=== PATIENT | female | born 1985 | race Caucasian/White ===

== ENCOUNTER 2016-05-22 15:29 | Emergency (ER) | payer OTHER ==
[~2016-05-22] VITALS: Ht 160 cm; Wt 124.7 kg
[~2016-05-22 15:29] MED LIST: IBUPROFEN200 M2 PO; MERIBIN5 MG PO; MIRENA1 EACH; SUBOXONE 8 MG-1 EACH SL; SUBOXONE 8 MG-21 TAB SL; TYLENOL EXTRA500 M2 PO
[2016-05-22 17:11] LABS: ABSOLUTE BASOPHIL COUNT 0 /CUMM (0.0-0.2); ABSOLUTE EOSINOPHIL COUNT 0.1 /CUMM (0.0-0.7); ABSOLUTE GRANULOCYTE CT 8.6 /CUMM (1.4-6.5); ABSOLUTE LYMPH COUNT 1.7 /CUMM (1.2-3.4); ABSOLUTE MONOCYTE COUNT 0.5 /CUMM (0.10-0.60); BASOPHIL % 0.3 % (0.0-2.0); EOSINOPHIL % 0.7 % (0-5); GRANULOCYTE % 78.7 % (42.2-75.2); HEMATOCRIT 40.3 % (37-47); MEAN CORPUSCULAR HGB 29.5 PG (27.0-31.0); MEAN CORPUSCULAR HGB CONC 33.2 G/DL (33.0-37.0); MEAN CORPUSCULAR VOLUME 88.9 FL (81.0-99.0); MEAN PLATELET VOLUME 7.8 FL (7.4-10.4); PLATELET COUNT 195 /CUMM (130-400); RBC DISTRIBUTION WIDTH 15.5 % (11.5-14.5); RED BLOOD CELL CT 4.53 /CUMM (4.20-5.40); WHITE BLOOD CELL COUNT 10.9 /CUMM (4.8-10.8)
--- NOTE | 2016-05-22 19:02 | ED CARDIAC/CP/PALPITATIONS ---
History of Present Illness General Chief Complaint: Chest Pain Stated Complaint: CHEST PAIN, TIGHTNESS SINCE LAST AM Source: patient Exam Limitations: no limitations Vital Signs & Intake/Output Vital Signs & Intake/Output Vital Signs Date Time Temp Pulse Resp B/P Pulse O2 O2 Flow FiO2 Ox Delivery Rate 05/225 98.0 72 18 134/66 99 Room Air 05/22 1837 98.6 83 18 149/68 98 Room Air 05/22 1646 96.4 79 16 122/68 96 Room Air ED Intake and Output 05/23 0000 05/22 1200 Intake Total 0 Output Total Balance 0 Intake, Oral 0 Patient 275 lb Weight Allergies Coded Allergies: cefaclor (From CECLOR) (RASH 02/01/16) tramadol (RASH 02/01/16) Reconcile Medications Acetaminophen (Tylenol Extra Strength) 500 MG TABLET 2 TAB PO Q8H PRN PAIN ( Reported) Buprenorphine HCl/Naloxone HCl (Suboxone 8 MG-2 MG Sl Film) 1 EACH FILM 1 STR SL TID PAIN (Reported) Ibuprofen 200 MG TABLET 600-800 MG PO Q4-6H PAIN (Reported) Levonorgestrel (Mirena) 1 EACH IUD CONTROL (Reported) Triage Note: PT STATES SHE HAD TIGHTNESS IN HER CHEST SINCE LAST EVENING. PT STATES 1/2 HOUR LATER SHE HAD NUMBNESS AND TINGLING IN THE TIPS OF HER FINGERS. PT STATES THE LAST EPISODE OF THIS WAS ABOUT 1400 TODAY. Triage Nurses Notes Reviewed? yes Onset: Gradual Duration: gone now, intermittent Timing: recent history Location: substernal Radiation: no radiation Activities at Onset: none Prior Chest Pain/Card Workup: no prior chest pain, no prior cardiac workup : No Patient currently breastfeeds: No HPI: Patient is a 30-year-old female with an unremarkable past medical history presents emergency and that yesterday at approximately 11 PM while at rest patient had acute onset of substernal chest tightness and heaviness that lasted approximate 5 minutes with associated symptoms of right finger numbness and tingling. Patient patient states that the symptoms have been intermittent since in which last episodes was 2 hours prior to being evaluated. Patient currently is asymptomatic. Denies any fever, chills, headache arm pain jaw pain palpitations nausea vomiting diaphoresis hemoptysis leg swelling shortness of breath cough. Denies any history of DVT PE denies any oral contraceptive denies any recent travel recent surgery. Patient denies any illicit drug use specially denies any cocaine use Denies any significant family history of cardiac disease Denies any tobacco use and drinks alcohol on occasion (SUE VALENTINE) Past History Travel History Traveled to [place] past 21 day No Medical History Any Pertinent Medical History? none History of CDIFF: No Surgical History Surgical History: non-contributory Psychosocial History What is your primary language Latvian Tobacco Use: Never used ETOH Use: occasional use Illicit Drug Use: denies illicit drug use Family History Hx Contributory? No (SUE VALENTINE) Review of Systems Review of Systems Constitutional: Reports: no symptoms. EENTM: Reports: no symptoms. Respiratory: Reports: no symptoms. Cardiovascular: Reports: see HPI, chest pain. GI: Reports: no symptoms. Genitourinary: Reports: no symptoms. Musculoskeletal: Reports: no symptoms. Skin: Reports: no symptoms. Neurological/Psychological: Reports: see HPI, paresthesia. Hematologic/Endocrine: Reports: no symptoms. Immunologic/Allergic: Reports: no symptoms. All Other Systems: Reviewed and Negative (SUE VALENTINE) Physical Exam Physical Exam General Appearance: no apparent distress, alert, comfortable Cardiovascular: regular rate/rhythm Comments: Well-developed well-nourished person in no acute distress HEENT: Normal EENT exam, extraocular motion intact, no nystagmus. Pupils equally round and reactive to light and accommodation. Nose is atraumatic. External auditory canal and Tympanic membranes clear. Pharynx normal. No swelling or edema. Neck: Supple, no lymphadenopathy, normal range of motion without pain or tenderness Back: Nontender, no CVA tenderness. Cardiovascular: Regular rate and rhythms no murmurs rubs or gallops, normal JVP Respiratory: Mild substernal point tenderness noted on palpation. No respiratory distress.breath sounds clear to auscultation bilaterally Abdomen: Soft, nontender nondistended, no appreciable organomegaly. Normal bowel sounds. No ascites Extremity: No edema, no calf tenderness to palpation, normal and equal pulses. Neuro: Alert oriented x3, motor sensory normal, Skin: No appreciable rash on exposed skin, skin is warm and dry. Psych: Mood and affect is normal, memory and judgment is normal. Core Measures ACS in differential dx? Yes Severe Sepsis Present: No Septic Shock Present: No (SUE VALENTINE) Progress Differential Diagnosis: AMI, aortic dissection, atrial fibrillation, cholecystitis, CHF/pulm edema, costochondritis, hyperkalemia, hypovolemia, hyperthyroid, hyperventilation, intracranial hemorrhage, musculoskeletal pain, myocarditis, pancreatitis, pericarditis, pneumonia, pneumothorax, PSVT, pulmonary embolism, PUD/GERD, PVCs/PACs, respiratory failure, rib fracture, sepsis, unstable angina, V-fib/V-Tach, WPW syndrome Plan of Care: Orders Procedure Date/time Status Add-on Test (ER Only) 05/22 1846 Active HUMAN BETA HCG SCREEN 05/22 165 Complete TROPONIN LEVEL 05/22 165 Complete COMPREHENSIVE METABOLIC PANEL 05/22 165 Complete CBC WITHOUT DIFFERENTIAL 05/22 1649 Complete EKG 05/22 1530 Active Laboratory Tests 05/22/16 165: Anion Gap 12, Estimated GFR > 60, BUN/Creatinine Ratio 28.3 H, Glucose 97, Calcium 9.0, Total Bilirubin 0.6, AST 24, ALT 46, Alkaline Phosphatase 50, Troponin I < 0.01, Total Protein 6.9, Albumin 3.8, Globulin 3.1, Albumin/ Globulin Ratio 1.2, Total Beta HCG NEGATIVE, CBC w Diff NO MAN DIFF REQ, RBC 4.53, MCV 88.9, MCH 29.5, RDW 15.5 H, MPV 7.8, Gran % 78.7 H, Lymphocytes % 15.7 L, Monocytes % 4.6, Eosinophils % 0.7, Basophils % 0.3, Absolute Granulocytes 8.6 H, Absolute Lymphocytes 1.7, Absolute Monocytes 0.5, Absolute Eosinophils 0.1, Absolute Basophils 0, PUBS MCHC 33.2 Due to history of present illness exam findings that patient has a PERC 0 score which essentially rules out pulmonary embolism. Patient had a 20 hour onset of chest heaviness and tightness symptoms which has completely resolved in which patient had initial EKG to be normal sinus rhythm patient on school bus monitor noted to be normal sinus rhythm and patient had unremarkable laboratory blood work especially cardiac troponin markers. Patient was reevaluated on multiple occasions and had no exacerbation of any symptom. Patient was strongly advised to follow up with primary care doctor was given absorption and adsorption engineer for follow-up if symptoms still continue. Upon discharge patient looks well no apparent distress and will comply with discharge instructions and had no questions. Patient had reproducible chest pain upon anterior chest wall palpation and my suspicion of myocardial involvement is low however I stressed with patient if symptoms worsen to return to the emergency room and she will comply (SUE VALENTINE) Diagnostic Imaging: Viewed by Me: Radiology Read. CXR Impression: no acute abnormality, no infiltrates Initial ED EKG: sinus rhythm at 78 bpm Comments: PATIENT: LEONARD INMAN PRESENT AGE: 30 PATIENT ACCOUNT NO: [id number] : 87 LOCATION: [facility] ORDERING PHYSICIAN: SUE MARTINEZ SERVICE DATE: 05/22/16 EXAM TYPE: RAD - XRY-CHEST XRAY, PA AND LATERAL EXAMINATION: XR CHEST CLINICAL INFORMATION: Chest tightness COMPARISON: Chest x-rays most recent prior dated 04/25/2012 TECHNIQUE: PA and lateral views of the chest were obtained. FINDINGS: Cardiomediastinal silhouette is within normal limits. Lungs are clear. Bony thorax is intact. IMPRESSION: No acute pulmonary disease (USE VALENTINE) Departure Departure Disposition: HOME OR SELF CARE Condition: Stable Clinical Impression Primary Impression: Chest wall pain Referrals: ARLEN HENDRIX,LUCIO (PCP/Family) Additional Instructions: As discussed if symptoms worsen or IF YOU develop a concerning symptom return to emergency room. If no better in 2 days follow-up with primary care doctor and please give labs and EKG and chest x-ray copies to them for follow-up AND please establish a absorption and adsorption engineer DR. DYER in 2 days if symptoms still persist. Departure Forms: Customer Survey General Discharge Information (SUE VALENTINE) PA/ACCOUNTS EXECUTIVE Co-Sign Statement Statement: ED Attending supervision documentation- [] I saw and evaluated the patient. I have also reviewed all the pertinent lab results and diagnostic results. I agree with the findings and the plan of care as documented in the PA's/ACCOUNTS EXECUTIVE's documentation. [X] I have reviewed the ED Record and agree with the PA's/ACCOUNTS EXECUTIVE's documentation. [] Additions or exceptions (if any) to the PAs/ACCOUNTS EXECUTIVE's note and plan are summarized below: [] (PORTER HENDRIX,QUINTON Lamar) Critical Care Note Critical Care Note Critical Care Time: non-applicable (SUE VALENTINE)
--- NOTE | 2016-05-22 19:41 | RADIOLOGY REPORT ---
EXAMINATION: XR CHEST CLINICAL INFORMATION: Chest tightness COMPARISON: Chest x-rays most recent prior dated 04/25/2012 TECHNIQUE: PA and lateral views of the chest were obtained. FINDINGS: Cardiomediastinal silhouette is within normal limits. Lungs are clear. Bony thorax is intact. IMPRESSION: No acute pulmonary disease.
[2016-05-22 19:55] VITALS: BP 134/66
[2016-10-18] MEDS ORDERED: SUBOXONE 8 MG-1 EACH (19:13)
[2016-10-22] MEDS ORDERED: PERCOCET 5-3251 EACH PO (18:13)
[2016-10-22] MEDS ORDERED: CYCLOBENZAPRINE5 M2 PO (18:13)
== END 2016-05-22 19:56 ==
LOC: ERH 15:29
PROVIDERS: Emergency Medicine
DX: R07.89 Other chest pain (principal)
CPT/HCPCS: 93005; 93010

== ENCOUNTER 2016-10-19 11:12 | Emergency (ER) | payer OTHER ==
[~2016-10-19] VITALS: Ht 162.6 cm; Wt 113.9 kg
[~2016-10-19 11:12] MED LIST changes: +SUBOXONE 8 MG-1 EACH
--- NOTE | 2016-10-19 12:36 | ED GI/GU/ABDOMINAL COMPLAINT ---
History of Present Illness General Chief Complaint: Abdominal Pain/Flank Pain Stated Complaint: LOWER PELVIC AND BACK PAIN SEEN HERE YESTERDAY Source: patient Exam Limitations: no limitations Vital Signs & Intake/Output Vital Signs & Intake/Output Vital Signs Date Time Temp Pulse Resp B/P B/P Pulse O2 O2 Flow FiO2 Mean Ox Delivery Rate 10/19 1535 99.4 70 16 112/64 100 Room Air 10/19 1316 98.7 73 16 128/68 98 Room Air 10/19 1124 96.2 87 18 115/79 98 Room Air Allergies Coded Allergies: cefaclor (From CECLOR) (RASH 10/18/16) tramadol (RASH 10/18/16) Reconcile Medications Buprenorphine HCl/Naloxone HCl (Suboxone 8 MG-2 MG Sl Film) (Unknown Strength) FILM (Unknown Dose) UNKNOWN (Reported) Ciprofloxacin HCl (Cipro) 500 MG TABLET 1 TAB PO BID UTI Levonorgestrel (Mirena) 1 EACH IUD CONTROL (Reported) Oxycodone HCl/Acetaminophen (Percocet 5-325 MG Tablet) 5 MG-325 MG TABLET 1-2 TAB PO Q6P PRN PAIN Triage Note: C/O LOWER ABODMINAL PAIN X 2 WEEKS, SEEN HERE YESTERDAY. HAD UA AND US DONE (NEGATIVE). STATES PAIN IS WORSE TODAY RADIATING TO BACK WITH NAUSEA. Triage Nurses Notes Reviewed? yes ? n Is pt currently ? No Onset: Abrupt Duration: week(s): (2), constant, continues in ED Timing: recent history Quality/Severity: moderate, sharpness Location: right, lower pelvis Radiation: back Activities at Onset: none No Modifying Factors: none HPI: 22-year-old female comes into emergency room for further evaluation of right lower pelvic pain has been going on for the past 2 weeks continuously. Some associated vomiting today. Patient was seen by yesterday here in the emergency room. Patient had a pelvic exam done as well as an ultrasound done and sent home. No acute findings. Sexually active with one partner. Some increased frequency with urination. Denies any vaginal discharge. Denies any changes in bowel movement. Previous exploratory laparoscopy for possible endometriosis or polycystic ovary disease. Laparoscopy was negative. Patient has a history of cholecystectomy but denies any other surgeries other than those 2. Denies any other associated symptoms. (BRANDON MARTINEZ,TANVIR) Past History Travel History Traveled to [place] past 21 day No Medical History Any Pertinent Medical History? none Neurological: NONE EENT: NONE Cardiovascular: NONE Respiratory: NONE Gastrointestinal: NONE Hepatic: NONE Renal: NONE Musculoskeletal: NONE Psychiatric: NONE Endocrine: NONE Blood Disorders: NONE Cancer(s): NONE TRANSACTION COORDINATOR/Reproductive: menorrhagia History of CDIFF: No Surgical History Surgical History: D&C exlap for endometrosis Psychosocial History What is your primary language Kyrgyz Tobacco Use: Never used ETOH Use: denies use Family History Hx Contributory? No (TANVIR HERNANDEZ) Review of Systems Review of Systems Constitutional: Reports: no symptoms. EENTM: Reports: no symptoms. Respiratory: Reports: no symptoms. Cardiovascular: Reports: no symptoms. GI: Reports: see HPI. Genitourinary: Reports: see HPI. Musculoskeletal: Reports: no symptoms. Skin: Reports: no symptoms. Neurological/Psychological: Reports: no symptoms. Hematologic/Endocrine: Reports: no symptoms. Immunologic/Allergic: Reports: no symptoms. All Other Systems: Reviewed and Negative (TANVIR HERNANDEZ) Physical Exam Physical Exam General Appearance: well developed/nourished, no apparent distress, mild distress Head: atraumatic Eyes: Bilateral: normal appearance. Ears, Nose, Throat, Mouth: hearing grossly normal, moist mucous membrane Neck: normal inspection, full range of motion Respiratory: normal breath sounds, no respiratory distress Cardiovascular: regular rate/rhythm Gastrointestinal: soft, tenderness (right lower pelvic) Back: normal inspection Extremities: normal range of motion Neurologic/Psych: awake, alert, oriented x 3, normal gait, normal mood/affect Skin: intact, normal color Core Measures ACS in differential dx? No Severe Sepsis Present: No Septic Shock Present: No (TANVIR HERNANDEZ) Progress Differential Diagnosis: appendicitis, biliary colic, cholecystitis, diverticulitis, ectopic , ischemic bowel, inflamm bowel dis, kidney stone, ovarian cyst, ovarian torsion, pancreatitis, PID/cervicitis, peptic ulcer , perforated viscous, threatened AB, UTI/pyelo Plan of Care: Orders Procedure Date/time Status Add-on Test (ER Only) 10/19 1234 Active LIPASE 10/19 1226 Complete COMPREHENSIVE METABOLIC PANEL 10/19 1155 Complete CBC WITHOUT DIFFERENTIAL 10/19 1155 Complete Laboratory Tests 10/19/16 1226: Anion Gap 14, Estimated GFR > 60, BUN/Creatinine Ratio 25.7 H, Glucose 85, Calcium 9.5, Total Bilirubin 0.6, AST 14, ALT 29, Alkaline Phosphatase 62, Total Protein 7.4, Albumin 4.2, Globulin 3.2, Albumin/Globulin Ratio 1.3, Lipase 60, CBC w Diff NO MAN DIFF REQ, RBC 4.52, MCV 91.7, MCH 30.5, RDW 13.9, MPV 7.5, Gran % 77.6 H, Lymphocytes % 18.3 L, Monocytes % 3.4, Eosinophils % 0.3, Basophils % 0.4, Absolute Granulocytes 7.4 H, Absolute Lymphocytes 1.7, Absolute Monocytes 0.3, Absolute Eosinophils 0, Absolute Basophils 0, PUBS MCHC 33.3 Diagnostic Imaging: Viewed by Me: CT Scan. Discussed w/RAD: CT Scan. Radiology Impression: EXAM TYPE: CAT - CT ABD & PELVIS W IV CONTRAST EXAMINATION : CT ABDOMEN AND PELVIS WITH CONTRAST CLINICAL INFORMATION: Right lower pelvic pain. Evaluate for appendicitis/cyst. COMPARISON: CT 04/25/2012. Pelvic ultrasound 10/18/2016. TECHNIQUE: Multidetector volumetric imaging was performed of the abdomen and pelvis before and after the IV administration of 75 mL of Optiray 320 intravenous contrast. Sagittal and coronal reformatted images were obtained on the technologist's workstation. DLP: 1116 mGy-cm FINDINGS: LUNG BASES: The visualized lung bases are unremarkable. LIVER, GALLBLADDER, AND BILIARY TREE: The liver is normal in size, shape, and attenuation. No focal hepatic lesion. Mild intrahepatic biliary ductal dilatation is noted, fairly similar to prior in the setting of cholecystectomy.. Surgical clips are seen in the gallbladder fossa. The common bile duct is unchanged. No radiopaque filling defects seen. PANCREAS: Unremarkable. SPLEEN: Calcifications are seen in the spleen. The spleen is otherwise unremarkable. ADRENAL GLANDS: Unremarkable. KIDNEYS AND URETERS: The kidneys are normal in size, shape, and attenuation. No hydronephrosis, hydroureter, or calculi seen. No perinephric stranding. BLADDER: Unremarkable. GASTROINTESTINAL TRACT: The stomach and small bowel are unremarkable. No dilated loops of bowel or obstruction. Fecalization in the distal ileum suggests slow transit. No colonic wall thickening or inflammatory change. There is a normal appendix. ABDOMINAL WALL: No significant hernia is appreciated. LYMPH NODES: Normal. VASCULAR: Unremarkable. PELVIC VISCERA: There is an IUD in place. No adnexal mass. OSSEOUS STRUCTURES: No acute or suspicious osseous abnormality. IMPRESSION: No acute findings of the abdomen or pelvis. Normal appendix. No adnexal mass. Mild intrahepatic biliary ductal dilatation is without change. Patient is status post cholecystectomy. DICTATED BY: MONTEZ WHITE MD DATE/TIME DICTATED:10/19/161537 ROOFING SUBCONTRACTOR:JERED DATE/ TIME TRANSCRIBED:10/19/161537 Initial ED EKG: none Comments: 10/19/2016 4:06:48 PM Patient clinically looks well. In no apparent distress. Nontoxic appearing. Resting comfortably in room. There is no acute findings on CT scan. No acute findings on vaginal cultures yesterday. 75,000 colonies. This is not sufficient for UTI but due to the fact that the patient is symptomatic covered with short course of antibiotics. I explained To the patient I do not feel this is a source of her pain. Patient has had previous laparoscopies for endometriosis in PCOS . patient needs close follow-up with GI doctor. Upon discharge she reports that she did have some bright red blood in her stool recently. She is hemodynamically stable. Patient in follow-up for outpatient colonoscopy. No suspicion for ovarian torsion. Ultrasound showed no acute findings yesterday but was limited. Patient may need repeat ultrasound. Case discussed with Dr. Rothman. (TANVIR HERNANDEZ) Departure Departure Disposition: HOME OR SELF CARE Condition: Stable Clinical Impression Primary Impression: Abdominal pain Secondary Impressions: UTI (urinary tract infection) Referrals: LUCIO MCKINLEY MD (PCP/Family) WINSOME JORDAN MD Additional Instructions: Take percocet and ciprofloxacin as prescribed. Follow-up with your SOCIAL INSURANCE ADMINISTRATOR doctor. Follow-up with gastric urologist provided. Cause of your symptoms are unclear at this time. Please go over all results of today's visit with your primary care doctor. Contact your primary care doctor to let them know you were here in the emergency room. There may be nonspecific findings which may not be related to your visit today here in the emergency room but may require further evaluation and chronic monitoring by your primary care doctor. If you had a laceration today the chance of foreign body always remains. You should follow-up with your primary care doctor for recheck in 3-5 days for a wound check. If you had an x-ray done there is a chance that a fracture could have been missed on initial read and you should follow-up with your primary care doctor for repeat x-rays if symptoms persist. If your blood pressure was elevated here in the emergency room please have rechecked by her primary care doctor within the next 48 hours by your primary care doctor. If you were prescribed a narcotic here in the emergency room or any type of controlled substances you're not allowed to drive while taking this medication or operate any type of heavy machinery. Narcotics can make you feel lightheaded dizziness nausea and can cause constipation. You may need to fish bait picker a stool softener. Thank you for choosing [facility] emergency room. Please return to the emergency room immediately if you have any other concerns worsening of symptoms. Departure Forms: Customer Survey General Discharge Information Prescriptions: Current Visit Scripts Oxycodone HCl/Acetaminophen (Percocet 5-325 MG Tablet) 1-2 TAB PO Q6P PRN PAIN #15 TAB Ciprofloxacin HCl (Cipro) 1 TAB PO BID #6 TAB (TANVIR HERNANDEZ) PA/KINDERGARTEN CLASSROOM TEACHER Co-Sign Statement Statement: ED Attending supervision documentation- [] I saw and evaluated the patient. I have also reviewed all the pertinent lab results and diagnostic results. I agree with the findings and the plan of care as documented in the PA's/KINDERGARTEN CLASSROOM TEACHER's documentation. [X] I have reviewed the ED Record and agree with the PA's/KINDERGARTEN CLASSROOM TEACHER's documentation. [] Additions or exceptions (if any) to the PAs/KINDERGARTEN CLASSROOM TEACHER's note and plan are summarized below: [] (PORTER HENDRIX,QUINTON Lamar)
[2016-10-19 12:41] LABS: ABSOLUTE BASOPHIL COUNT 0 /CUMM (0.0-0.2); ABSOLUTE EOSINOPHIL COUNT 0 /CUMM (0.0-0.7); ABSOLUTE GRANULOCYTE CT 7.4 /CUMM (1.4-6.5); ABSOLUTE LYMPH COUNT 1.7 /CUMM (1.2-3.4); ABSOLUTE MONOCYTE COUNT 0.3 /CUMM (0.10-0.60); BASOPHIL % 0.4 % (0.0-2.0); EOSINOPHIL % 0.3 % (0-5); GRANULOCYTE % 77.6 % (42.2-75.2); HEMATOCRIT 41.5 % (37-47); MEAN CORPUSCULAR HGB 30.5 PG (27.0-31.0); MEAN CORPUSCULAR HGB CONC 33.3 G/DL (33.0-37.0); MEAN CORPUSCULAR VOLUME 91.7 FL (81.0-99.0); MEAN PLATELET VOLUME 7.5 FL (7.4-10.4); PLATELET COUNT 221 /CUMM (130-400); RBC DISTRIBUTION WIDTH 13.9 % (11.5-14.5); RED BLOOD CELL CT 4.52 /CUMM (4.20-5.40); WHITE BLOOD CELL COUNT 9.5 /CUMM (4.8-10.8)
[2016-10-19 15:35] VITALS: BP 112/64
--- NOTE | 2016-10-19 15:48 | CT SCAN REPORT ---
EXAMINATION: CT ABDOMEN AND PELVIS WITH CONTRAST CLINICAL INFORMATION: Right lower pelvic pain. Evaluate for appendicitis/cyst. COMPARISON: CT 04/25/2012. Pelvic ultrasound 10/18/2016. TECHNIQUE: Multidetector volumetric imaging was performed of the abdomen and pelvis before and after the IV administration of 75 mL of Optiray 320 intravenous contrast. Sagittal and coronal reformatted images were obtained on the technologist's workstation. DLP: 1116 mGy-cm FINDINGS: LUNG BASES: The visualized lung bases are unremarkable. LIVER, GALLBLADDER, AND BILIARY TREE: The liver is normal in size, shape, and attenuation. No focal hepatic lesion. Mild intrahepatic biliary ductal dilatation is noted, fairly similar to prior in the setting of cholecystectomy.. Surgical clips are seen in the gallbladder fossa. The common bile duct is unchanged. No radiopaque filling defects seen. PANCREAS: Unremarkable. SPLEEN: Calcifications are seen in the spleen. The spleen is otherwise unremarkable. ADRENAL GLANDS: Unremarkable. KIDNEYS AND URETERS: The kidneys are normal in size, shape, and attenuation. No hydronephrosis, hydroureter, or calculi seen. No perinephric stranding. BLADDER: Unremarkable. GASTROINTESTINAL TRACT: The stomach and small bowel are unremarkable. No dilated loops of bowel or obstruction. Fecalization in the distal ileum suggests slow transit. No colonic wall thickening or inflammatory change. There is a normal appendix. ABDOMINAL WALL: No significant hernia is appreciated. LYMPH NODES: Normal. VASCULAR: Unremarkable. PELVIC VISCERA: There is an IUD in place. No adnexal mass. OSSEOUS STRUCTURES: No acute or suspicious osseous abnormality. IMPRESSION: No acute findings of the abdomen or pelvis. Normal appendix. No adnexal mass. Mild intrahepatic biliary ductal dilatation is without change. Patient is status post cholecystectomy.
[2016-10-19] MEDS ORDERED: CIPRO500 M1 PO (16:05)
[2016-10-19] MEDS ORDERED: PERCOCET 5-3251 EACH PO (16:05)
[2016-10-22] MEDS ORDERED: PERCOCET 5-3251 EACH PO (18:13)
[2016-10-22] MEDS ORDERED: CYCLOBENZAPRINE5 M2 PO (18:13)
== END 2016-10-19 16:18 ==
LOC: ERH 11:12
PROVIDERS: Physician Assistant Medical
DX: N39.0 Urinary tract infection, site not specified (principal)
CPT/HCPCS: 74177; 96361; 96374; 96375; J2405

== ENCOUNTER 2016-10-29 13:51 | Emergency (ER) | payer OTHER ==
[~2016-10-29] VITALS: Ht 162.6 cm; Wt 111.6 kg
[~2016-10-29 13:51] MED LIST changes: +CIPRO500 M1 PO; +CYCLOBENZAPRINE5 M2 PO; +PERCOCET 5-3251 EACH PO
[2016-10-29 14:43] VITALS: BP 132/83
[2016-10-29] MEDS ORDERED: CIPROFLOXACIN500 M2 PO (15:37)
--- NOTE | 2016-10-29 15:43 | ED GENERAL ADULT ---
History of Present Illness General Chief Complaint: Low Back Pain/Injury Stated Complaint: LOWER BACK PAIN Source: patient, old records Exam Limitations: no limitations Vital Signs & Intake/Output Vital Signs & Intake/Output Vital Signs Date Time Temp Pulse Resp B/P B/P Pulse O2 O2 Flow FiO2 Mean Ox Delivery Rate 10/29 1443 96.2 109 18 132/83 99 Room Air Allergies Coded Allergies: [facility]ef[facility]lor ([facility]) (RASH 10/22/16) tramadol (RASH 10/22/16) Reconcile Medications Buprenorphine HCl/Naloxone HCl (Suboxone 8 MG-2 MG Sl Film) (Unknown Strength) FILM (Unknown Dose) UNKNOWN (Reported) Ciprofloxacin HCl 500 MG TABLET 1 TAB PO BID UTI (Reported) Cyclobenzaprine HCl 5 MG TABLET 1 TAB PO TIDPRN pain Levonorgestrel (Mirena) 1 EACH IUD CONTROL (Reported) Meloxicam 7.5 MG TABLET 1 TAB PO DAILY PRN pain Oxycodone HCl/Acetaminophen (Percocet 5-325 MG Tablet) 5 MG-325 MG TABLET 1 TAB PO TID pain Triage Note: C/O LOWER BACK PAIN X 2 WEEKS, HAS HAD MUTLTIPLE VISITS HERE FOR SAME. SAW DR. CHAMBERLAIN LAST WEEK, REFERRED TO UROLOGIST. WAS GIVEN OXYCODONE BUT NOT HELPING. ALSO C/O PAIN ON URINATION. Triage Nurses Notes Reviewed? yes Onset: Gradual Duration: week(s): Timing: recent history Severity: severe : No Patient currently breastfeeds: No HPI: 30yo female presents to ED c/o right low back pain x 2 weeks. The patient states that she has been to the ED many times in the past two weeks however her symptoms have persisted. Pain in her low back is described as constant, sharp, and 10/10, not relieved by motrin or percocet. She is also complaining of persistent dysuria, frequency, chills, malaise, nausea, vomiting x 3 yesterday, and abnormal vaginal discharge. She has followed up with her OBGYN and work up has been normal, transvaginal ultrasound was WNL, IUD was in place. She has an appointment for urology this week. She was treated for a UTI and possible PID/ STD this month, no relief of her symptoms following abx therapy. CT scan of abdomen and pelvis with contrast did not show any acute abdomenal or pelvic pathology. She denies fevers, vaginal bleeding, dyspnea, cough, chest pain, hematuria, skin changes. (LEONARD SCHMID PA-C) Past History Travel History Traveled to [place] past 21 day No Medical History Any Pertinent Medical History? 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 No (LEONARD SCHMID PA-C) Review of Systems Review of Systems Constitutional: Reports: see HPI. EENTM: Reports: no symptoms. Respiratory: Reports: no symptoms. Cardiovascular: Reports: no symptoms. GI: Reports: see HPI. Genitourinary: Reports: see HPI. Musculoskeletal: Reports: see HPI. Skin: Reports: no symptoms. Neurological/Psychological: Reports: no symptoms. Hematologic/Endocrine: Reports: no symptoms. Immunologic/Allergic: Reports: no symptoms. All Other Systems: Reviewed and Negative (LEONARD SCHMID PA-C) Physical Exam Physical Exam General Appearance: well developed/nourished, no apparent distress, alert, awake Head: atraumatic, normal appearance Eyes: Bilateral: normal appearance, EOMI. Ears, Nose, Throat: hearing grossly normal Neck: normal inspection, supple, full range of motion Respiratory: normal breath sounds, no respiratory distress, lungs clear Cardiovascular: tachycardia Gastrointestinal: normal bowel sounds, soft, no organomegaly, obese, RLQ tenderness, no rebound tenderness, no gaurding Back: normal inspection, normal range of motion, no vertebral tenderness, tenderness of right lower back to deep palpation, no CVA tenderness Extremities: normal inspection, normal range of motion Neurologic/Psych: awake, alert, oriented x 3 Skin: intact, normal color, warm/dry Core Measures ACS in differential dx? No CVA/TIA Diagnosis: No Severe Sepsis Present: No Septic Shock Present: No (LEONARD SCHMID PA-C) Progress Differential Diagnoses I considered the following diagnoses in my evaluation of the patient: [ appendicitis, pyelonephritis, nephrolithiasis, diverticulitis, PID, vaginitis, endometriosis, SBO, gastroenteritis, muscle strain/spasm] Plan of Care: Orders Procedure Date/time Status CULTURE,URINE 10/29 1556 Active URINALYSIS 10/29 1556 Complete COMPREHENSIVE METABOLIC PANEL 10/29 1556 Complete CBC WITHOUT DIFFERENTIAL 10/29 1556 Complete Laboratory Tests 10/29/16 1605: Anion Gap 13, Estimated GFR > 60, BUN/Creatinine Ratio 20.0, Glucose 80, Calcium 9.9, Total Bilirubin 0.6, AST 15, ALT 25, Alkaline Phosphatase 52, Total Protein 7.6, Albumin 4.4, Globulin 3.2, Albumin/Globulin Ratio 1.4, CBC w Diff NO MAN DIFF REQ, RBC 4.80, MCV 92.4, MCH 30.6, RDW 14.1, MPV 7.7, Gran % 74.4, Lymphocytes % 18.0 L, Monocytes % 6.6, Eosinophils % 0.6, Basophils % 0.4, Absolute Granulocytes 7.4 H, Absolute Lymphocytes 1.8, Absolute Monocytes 0.7 H, Absolute Eosinophils 0.1, Absolute Basophils 0, PUBS MCHC 33.2 10/29/16 1600: Urinalysis LIGHT H, Urine Color YEL, Urine Clarity HAZY H, Urine pH 6.0, Ur Specific [place] 1.015, Urine Protein NEG, Urine Ketones NEG, Urine Nitrite NEG, Urine Bilirubin NEG, Urine Urobilinogen 0.2, Ur Leukocyte Esterase TRACE H, Ur Microscopic SEDIMENT EXAMINED, Urine WBC 1-3 H, Ur Epithelial Cells FEW, Urine Bacteria FEW H, Urine Hemoglobin TRACE-LYSED, Urine Glucose NEG Microbiology 10/29 1600 URINE ROUT: Urine Culture - RECD Patient is lying in bed, in no acute distress, she is non toxic appearing. She describes her pain as the same in quality as previous visits this month. Labs today are unremarkable, UA is negative. She had a CT abdomen and pelvis with contrast on 10/19 which was WNL. She has already been on abx coverage for UTI and gonorrhea/chlamydia this month with no relief of symptoms. Suspicion for acute abdominal infection is low at this time given recent scans and recent treatment with antibiotics. Flexoril, motrin, and percocet to not change her pain. The patient was discussed with Dr. Salas. She will follow up with her urologist as scheduled tomorrow. She was given a short course of Meloxicam for her right low back pain. She will return with worsening symptoms. The patient is in agreement with the plan of care. (LEONARD SCHMID PA-C) Initial ED EKG: none (LEONARD SCHMID PA-C) Departure Departure Disposition: HOME OR SELF CARE Condition: Stable Clinical Impression Primary Impression: Lower back pain Referrals: LUCIO MCKINLEY MD (PCP/Family) Additional Instructions: Take Meloxicam as prescribed as needed for your pain. Keep your scheduled apointment with the urologist this week. Let you primary care doctor know that you were seen and evaluated here today. Return with worsening symptoms or concerns. Departure Forms: Customer Survey General Discharge Information Prescriptions: Current Visit Scripts Meloxicam 1 TAB PO DAILY PRN pain #10 TAB (LEONARD SCHMID PA-C) PA/OBSTETRICS SCRUB NURSE Co-Sign Statement Statement: ED Attending supervision documentation- [] I saw and evaluated the patient. I have also reviewed all the pertinent lab results and diagnostic results. I agree with the findings and the plan of care as documented in the PA's/OBSTETRICS SCRUB NURSE's documentation. [X] I have reviewed the ED Record and agree with the PA's/OBSTETRICS SCRUB NURSE's documentation. [] Additions or exceptions (if any) to the PAs/OBSTETRICS SCRUB NURSE's note and plan are summarized below: [] (HARPER SALAS DO) Critical Care Note Critical Care Note Critical Care Time: non-applicable (LEONARD SCHMID PA-C)
[2016-10-29 16:20] LABS: ABSOLUTE BASOPHIL COUNT 0 /CUMM (0.0-0.2); ABSOLUTE EOSINOPHIL COUNT 0.1 /CUMM (0.0-0.7); ABSOLUTE GRANULOCYTE CT 7.4 /CUMM (1.4-6.5); ABSOLUTE LYMPH COUNT 1.8 /CUMM (1.2-3.4); ABSOLUTE MONOCYTE COUNT 0.7 /CUMM (0.10-0.60); BASOPHIL % 0.4 % (0.0-2.0); EOSINOPHIL % 0.6 % (0-5); GRANULOCYTE % 74.4 % (42.2-75.2); HEMATOCRIT 44.3 % (37-47); MEAN CORPUSCULAR HGB 30.6 PG (27.0-31.0); MEAN CORPUSCULAR HGB CONC 33.2 G/DL (33.0-37.0); MEAN CORPUSCULAR VOLUME 92.4 FL (81.0-99.0); MEAN PLATELET VOLUME 7.7 FL (7.4-10.4); PLATELET COUNT 214 /CUMM (130-400); RBC DISTRIBUTION WIDTH 14.1 % (11.5-14.5); WHITE BLOOD CELL COUNT 9.9 /CUMM (4.8-10.8)
[2016-10-29] MEDS ORDERED: MELOXICAM7.5 M1 PO (17:59)
== END 2016-10-29 18:04 ==
LOC: ERH 13:51
PROVIDERS: Physician Assistant
DX: M54.5 Low back pain (principal)
CPT/HCPCS: 81001; 87086; J3101

== ENCOUNTER 2017-06-09 19:52 | Emergency (ER) | payer OTHER ==
[~2017-06-09] VITALS: Ht 160 cm; Wt 117.9 kg
[~2017-06-09 19:52] MED LIST changes: +CIPROFLOXACIN500 M2 PO; +DOXYCYCLINE HY100 M4 PO; +FLAGYL500 MG PO; +LEVSIN0.125 M1 PO; +MELOXICAM7.5 M1 PO; +MOBIC15 M1 PO
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
[2017-06-09 22:43] LABS: ABSOLUTE BASOPHIL COUNT 0 /CUMM (0.0-0.2); ABSOLUTE EOSINOPHIL COUNT 0 /CUMM (0.0-0.7); ABSOLUTE GRANULOCYTE CT 8.2 /CUMM (1.4-6.5); ABSOLUTE LYMPH COUNT 1.8 /CUMM (1.2-3.4); ABSOLUTE MONOCYTE COUNT 0.3 /CUMM (0.10-0.60); BASOPHIL % 0.2 % (0.0-2.0); EOSINOPHIL % 0.5 % (0-5); GRANULOCYTE % 78.7 % (42.2-75.2); HEMATOCRIT 43.5 % (37-47); MEAN CORPUSCULAR HGB 30.5 PG (27.0-31.0); MEAN CORPUSCULAR HGB CONC 33.3 G/DL (33.0-37.0); MEAN CORPUSCULAR VOLUME 91.8 FL (81.0-99.0); MEAN PLATELET VOLUME 7.8 FL (7.4-10.4); PLATELET COUNT 239 /CUMM (130-400); RBC DISTRIBUTION WIDTH 13.5 % (11.5-14.5); RED BLOOD CELL CT 4.73 /CUMM (4.20-5.40); WHITE BLOOD CELL COUNT 10.4 /CUMM (4.8-10.8)
[2017-06-09] MEDS ORDERED: ZOFRAN ODT4 M1 PO (23:53)
[2017-06-10] MEDS ORDERED: ATIVAN0.5 M1 PO (00:06)
[2017-06-10 00:59] VITALS: BP 123/67
[2017-06-15] MEDS ORDERED: SUBOXONE 8 MG-1 EACH PO (15:14)
[2017-06-15] MEDS ORDERED: ATIVAN1 M1 PO (15:17)
== END 2017-06-10 00:59 ==
LOC: ERH 19:52
PROVIDERS: Emergency Medicine
DX: T76.21XA Adult sexual abuse, suspected, initial encounter (principal)
CPT/HCPCS: 87070; 81001; 81025; 87086; 87389; 87491; 87591; 96372; J0456; J1580; J3101

== ENCOUNTER 2017-06-29 16:16 | Emergency (ER) | payer OTHER ==
[~2017-06-29] VITALS: Ht 160 cm; Wt 119.3 kg
[~2017-06-29 16:16] MED LIST changes: +ATIVAN0.5 M1 PO; +ATIVAN1 M1 PO; +SUBOXONE 8 MG-1 EACH PO; +ZOFRAN ODT4 M1 PO
[2017-06-29 17:04] VITALS: BP 120/79
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
[2017-06-29 18:46] LABS: ABSOLUTE BASOPHIL COUNT 0 /CUMM (0.0-0.2); ABSOLUTE EOSINOPHIL COUNT 0.1 /CUMM (0.0-0.7); ABSOLUTE LYMPH COUNT 1.6 /CUMM (1.2-3.4); ABSOLUTE MONOCYTE COUNT 0.3 /CUMM (0.10-0.60); BASOPHIL % 0.3 % (0.0-2.0); EOSINOPHIL % 1.4 % (0-5); GRANULOCYTE % 75.5 % (42.2-75.2); HEMATOCRIT 43.4 % (37-47); MEAN CORPUSCULAR HGB 30.4 PG (27.0-31.0); MEAN CORPUSCULAR HGB CONC 32.6 G/DL (33.0-37.0); MEAN CORPUSCULAR VOLUME 93.2 FL (81.0-99.0); MEAN PLATELET VOLUME 8.1 FL (7.4-10.4); PLATELET COUNT 229 /CUMM (130-400); RBC DISTRIBUTION WIDTH 13.8 % (11.5-14.5); RED BLOOD CELL CT 4.65 /CUMM (4.20-5.40)
[2017-06-29] MEDS ORDERED: HYDROXYZINE HCL25 M2 PO (20:35)
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
== END 2017-06-29 20:38 ==
LOC: ERH 16:16
PROVIDERS: Internal Medicine
DX: F41.9 Anxiety disorder, unspecified (principal)
CPT/HCPCS: 80307; G0463

== ENCOUNTER 2017-12-20 12:01 | Emergency (ER) | payer OTHER ==
[~2017-12-20] VITALS: Ht 160 cm; Wt 120.2 kg
[~2017-12-20 12:01] MED LIST changes: +HYDROXYZINE HCL25 M2 PO
[2017-12-20 12:39] LABS: ABSOLUTE BASOPHIL COUNT 0 /CUMM (0.0-0.2); ABSOLUTE EOSINOPHIL COUNT 0.1 /CUMM (0.0-0.7); ABSOLUTE GRANULOCYTE CT 5.8 /CUMM (1.4-6.5); ABSOLUTE LYMPH COUNT 1.7 /CUMM (1.2-3.4); ABSOLUTE MONOCYTE COUNT 0.3 /CUMM (0.10-0.60); BASOPHIL % 0.3 % (0.0-2.0); EOSINOPHIL % 1.2 % (0-5); GRANULOCYTE % 73.9 % (42.2-75.2); HEMATOCRIT 41.7 % (37-47); MEAN CORPUSCULAR HGB CONC 33.9 G/DL (33.0-37.0); MEAN CORPUSCULAR VOLUME 91.4 FL (81.0-99.0); MEAN PLATELET VOLUME 7.4 FL (7.4-10.4); PLATELET COUNT 217 /CUMM (130-400); RBC DISTRIBUTION WIDTH 13.5 % (11.5-14.5); RED BLOOD CELL CT 4.57 /CUMM (4.20-5.40); WHITE BLOOD CELL COUNT 7.9 /CUMM (4.8-10.8)
--- NOTE | 2017-12-20 13:51 | ED GI/GU/ABDOMINAL COMPLAINT ---
History of Present Illness General Chief Complaint: Abdominal Pain/Flank Pain Stated Complaint: LOWER RIGHT SIDED ABD PAIN, RADIATES TO THE BACK Source: patient, old records Exam Limitations: no limitations Vital Signs & Intake/Output Vital Signs & Intake/Output Vital Signs Date Time Temp Pulse Resp B/P B/P Pulse O2 O2 Flow FiO2 Mean Ox Delivery Rate 12/20 1543 98.3 69 18 152/73 99 Room Air 12/20 1442 Room Air 12/20 1209 97.5 78 18 142/88 96 Room Air Allergies Coded Allergies: cefaclor (From [facility]) (RASH 04/10/17) tramadol (RASH 04/10/17) Reconcile Medications Buprenorphine HCl/Naloxone HCl (Suboxone 8 MG-2 MG Sl Film) 8 MG-2 MG FILM 8 MG PO DAILY PAIN CONTROL (Reported) Ciprofloxacin HCl (Cipro) 500 MG TABLET 1 TAB PO BID UTI Doxycycline Hyclate 100 MG TABLET 1 TAB PO BID PID Hydroxyzine Hydrochloride (Atarax) 25 MG TAB 1 TAB PO TID PRN anxiety Hyoscyamine (Levsin) 0.125 MG TABLET 1 TAB PO Q4 PRN ABDOMINAL PAIN Levonorgestrel (Mirena) 1 EACH IUD CONTROL (Reported) Lorazepam (Ativan) 0.5 MG TABLET 1 TAB PO QHS PRN ANXIETY LORazepam (Ativan) 1 MG TAB 1 TAB PO TID PRN ANXIETY Meloxicam (Mobic) 15 MG TABLET 1 TAB PO DAILY pain Metronidazole (Flagyl) 500 MG TABLET 1 TAB PO BID BV Ondansetron (Zofran Odt) 4 MG TAB.RAPDIS 1 TAB PO Q6 PRN NAUSEA Oxycodone HCl/Acetaminophen (Percocet 5-325 MG Tablet) 5 MG-325 MG TABLET 1-2 TAB PO BID PAIN Triage Note: PT COMPLAINS OF RLQ DULL PAIN FOR THE PAST 4 DAYS , WITH NAUSEA, HAS HISTORY OF CHRONIC ABD ISSUES BUT STATES THAT THIS FEELS DIFFERENT. DENIES URINARY SYMPTOMS Triage Nurses Notes Reviewed? yes ? n Is pt currently ? No Onset: Gradual Duration: day(s): Timing: recent history Quality/Severity: moderate Location: right lower quadrant Sexually Active: Yes Last Time You Were Sexual: less than 2 months ago Sexual Orientation: Heterosexual Use of Protection: Yes Always No Modifying Factors: none HPI: 32-year-old female presents to emergency department complaining of right lower quadrant abdominal pain 4 days. Patient states the pain is gradually worsening , today's been the most severe. Patient reports associated nausea with an episode of nonbilious/nonbloody vomiting last night. Patient reports blood streaks in her stool. Patient states that her abdominal pain feels different than previous episodes of abdominal pains. Patient reports one episode of dyspareunia. She denies new sexual partner or possibility of STDs, she states she was recently tested for STDs. Patient reports chills. Patient denies fevers, constipation, dysuria, vaginal discharge. Past History Travel History Traveled to [place] past 21 day No Medical History Any Pertinent Medical History? 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 No Review of Systems Review of Systems Constitutional: Reports: see HPI. EENTM: Reports: no symptoms. Respiratory: Reports: no symptoms. Cardiovascular: Reports: no symptoms. GI: Reports: see HPI. Genitourinary: Reports: see HPI. Musculoskeletal: Reports: no symptoms. Skin: Reports: no symptoms. Neurological/Psychological: Reports: no symptoms. Hematologic/Endocrine: Reports: no symptoms. Immunologic/Allergic: Reports: no symptoms. All Other Systems: Reviewed and Negative Physical Exam Physical Exam General Appearance: well developed/nourished, no apparent distress, alert, awake Head: atraumatic, normal appearance Eyes: Bilateral: normal appearance. Ears, Nose, Throat, Mouth: hearing grossly normal Neck: normal inspection, supple, full range of motion Respiratory: normal breath sounds, no respiratory distress, lungs clear Cardiovascular: regular rate/rhythm Gastrointestinal: normal bowel sounds, soft, non-tender, no organomegaly Pelvic: declined Back: normal inspection, normal range of motion Extremities: normal range of motion Neurologic/Psych: awake, alert, oriented x 3 Skin: intact, normal color, warm/dry Core Measures ACS in differential dx? No Sepsis Present: No Sepsis Focused Exam Completed? No Progress Differential Diagnosis: appendicitis, bowel obstruction, diverticulitis, hernia, inflamm bowel dis, kidney stone, ovarian cyst, ovarian torsion, SBO, UTI/pyelo Plan of Care: Orders Procedure Date/time Status Add-on Test (ER Only) 12/20 1321 Active HUMAN BETA HCG SCREEN 12/20 1215 Complete URINALYSIS 12/20 1205 Complete CBC WITHOUT DIFFERENTIAL 12/20 1205 Complete BASIC METABOLIC PANEL 12/20 1205 Complete Laboratory Tests 12/20/17 1339: Urinalysis LIGHT H, Urine Color YEL, Urine Clarity HAZY H, Urine pH 6.5, Ur Specific Ayr 1.025, Urine Protein NEG, Urine Ketones NEG, Urine Nitrite NEG, Urine Bilirubin NEG, Urine Urobilinogen 0.2, Ur Leukocyte Esterase TRACE H, Ur Microscopic SEDIMENT EXAMINED, Urine RBC RARE, Urine WBC 1-3 H, Ur Epithelial Cells MANY H, Urine Bacteria MANY H, Urine Mucus FEW, Urine Hemoglobin TRACE- INTACT, Urine Glucose NEG 12/20/17 1215: Anion Gap 9, Estimated GFR > 60, BUN/Creatinine Ratio 26.0 H, Glucose 101 H, Calcium 9.2, Total Beta HCG NEGATIVE, CBC w Diff NO MAN DIFF REQ, RBC 4.57, MCV 91.4, MCH 31.0, MCHC 33.9, RDW 13.5, MPV 7.4, Gran % 73.9, Lymphocytes % 21.4, Monocytes % 3.2, Eosinophils % 1.2, Basophils % 0.3, Absolute Granulocytes 5.8, Absolute Lymphocytes 1.7, Absolute Monocytes 0.3, Absolute Eosinophils 0.1, Absolute Basophils [address] 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 CT scan abdomen and pelvis shows no acute abnormality to explain patient's symptoms. Her labs are stable, no leukocytosis, non-actionable. His vital signs are stable, afebrile. She is nontoxic appearing, sitting in stretcher in no acute distress. She was offered screening for STIs however declines, she states she has a low suspicion for STIs given no new sexual partner and recent screening. Patient encouraged to follow-up with her primary care physician and her GI specialist. She agrees with the plan of care. Diagnostic Imaging: Viewed by Me: CT Scan. Discussed w/RAD: CT Scan. Radiology Impression: PATIENT: ARSAN,LEONARD PRESENT AGE: 32 PATIENT ACCOUNT NO: [id number] : 87 LOCATION: [facility] ORDERING PHYSICIAN: Gisela MARTINEZ SERVICE DATE: 12/20/17 EXAM TYPE: CAT - CT ABD & PELVIS W IV CONTRAST EXAMINATION: CT ABDOMEN AND PELVIS WITH CONTRAST CLINICAL INFORMATION: Pain. COMPARISON: 03/11/2017. TECHNIQUE: Contiguous axial thin section helical images of the abdomen and pelvis were performed following the administration of 100 mL of intravenous Omnipaque 300. The data set was reformatted in the coronal and sagittal planes and reviewed on an independent workstation. DLP: 1385 mGy-cm. FINDINGS: The visualized lung bases are clear. The visualized portions of the heart are unremarkable. The liver is of normal size and attenuation without focal lesions. There is mild intrahepatic biliary ductal dilation. The patient is status post cholecystectomy. Surgical clips are identified. The spleen, pancreas, adrenal glands are unremarkable. Both kidneys are of normal size and attenuation without hydronephrosis or nephrolithiasis. Following the administration of IV contrast, prompt symmetric nephrograms are displayed. There is no abdominal free fluid. There is neither mesenteric nor retroperitoneal lymphadenopathy. Normal unopacified loops of small and large bowel are identified. A normal appendix is identified. An IUD is in appropriate position. There is no pelvic free fluid. The urinary bladder is unremarkable. There is neither pelvic nor inguinal lymphadenopathy. Bone windows: Neither sclerotic nor lytic bone lesions are identified. IMPRESSION: No evidence for acute abdominal or pelvic inflammatory or infectious processes. DICTATED BY: Hung Sequeira MD DATE/TIME DICTATED:12/20/171546 EXTENSION SERVICE ADVISOR:JERED DATE/TIME TRANSCRIBED:12/20/171546 CONFIDENTIAL, DO NOT COPY WITHOUT APPROPRIATE AUTHORIZATION. <Electronically signed in Other Vendor System> SIGNED BY: Hung Sequeira MD 12/20/17 4086 Initial ED EKG: none Departure Departure Disposition: HOME OR SELF CARE Condition: Stable Clinical Impression Primary Impression: Abdominal pain Qualifiers: Abdominal location: right lower quadrant Qualified Code: R10.31 - Right lower quadrant pain Referrals: Kerry Omalley MD (PCP/Family) Additional Instructions: Follow-up with your primary care physician. Return if any worsening symptoms or concerns. Please note that there might be incidental findings in your evaluation that are unrelated to the current emergency department visit. Please notify your primary care doctor about this emergency department visit in order to obtain and review all of the testing performed so that these incidental findings can be monitored as needed. If you had an x-ray performed, please understand that some fractures may not be seen on the initial set of x-rays. If your symptoms persist you might need a repeat set of x-rays to check for such a fracture. If you had a laceration evaluated, please understand that foreign bodies such as glass or wood may not be visible to the naked eye or on plain x-rays. If the wound becomes red, swollen, increasingly more painful or if there is any drainage from the wound, please have it reevaluated by a physician for the possibility of a retained foreign body. If you're unable to follow up as outlined in the discharge instructions please return to the emergency department. Thank you for choosing the [facility] Emergency Department for your care. It was a pleasure to serve you today. Departure Forms: Customer Survey General Discharge Information
[2017-12-20 15:43] VITALS: BP 152/73
--- NOTE | 2017-12-20 15:56 | CT SCAN REPORT ---
EXAMINATION: CT ABDOMEN AND PELVIS WITH CONTRAST CLINICAL INFORMATION: Pain. COMPARISON: 03/11/2017. TECHNIQUE: Contiguous axial thin section helical images of the abdomen and pelvis were performed following the administration of 100 mL of intravenous Omnipaque 300. The data set was reformatted in the coronal and sagittal planes and reviewed on an independent workstation. DLP: 1385 mGy-cm. FINDINGS: The visualized lung bases are clear. The visualized portions of the heart are unremarkable. The liver is of normal size and attenuation without focal lesions. There is mild intrahepatic biliary ductal dilation. The patient is status post cholecystectomy. Surgical clips are identified. The spleen, pancreas, adrenal glands are unremarkable. Both kidneys are of normal size and attenuation without hydronephrosis or nephrolithiasis. Following the administration of IV contrast, prompt symmetric nephrograms are displayed. There is no abdominal free fluid. There is neither mesenteric nor retroperitoneal lymphadenopathy. Normal unopacified loops of small and large bowel are identified. A normal appendix is identified. An IUD is in appropriate position. There is no pelvic free fluid. The urinary bladder is unremarkable. There is neither pelvic nor inguinal lymphadenopathy. Bone windows: Neither sclerotic nor lytic bone lesions are identified. IMPRESSION: No evidence for acute abdominal or pelvic inflammatory or infectious processes.
== END 2017-12-20 16:32 ==
LOC: ERH 12:01
PROVIDERS: Physician Assistant
DX: R10.31 Right lower quadrant pain (principal); R11.0 Nausea
CPT/HCPCS: 74177; 81001; 81025; 96374; 96375; J1885; J2405